=== PATIENT | female | born 1975 | race Caucasian/White ===

== ENCOUNTER 2018-06-02 05:36 | Inpatient (IN) | payer MEDICARE, BC ==
[~2018-06-02 05:36] MED LIST: Acetaminophen 500 MG Tab PO ONE; Celecoxib 200 MG Cap PO ONE; Gabapentin 300 MG Cap PO ONE
[2018-06-02] MEDS ORDERED: Dextrose 5%-Lactated Ringers 1,000 ML IV SCH (06:00)
[2018-06-02] MEDS ORDERED: Scopolamine 1.5 MG Transdermal Patch TRDERM ONE (06:00)
[2018-06-02] MEDS ORDERED: Albuterol/Ipratropium 3.0-0.5 MG/3 ML Neb Soln NEB ONE (06:45)
[2018-06-02] MEDS ORDERED: Levofloxacin 500 MG/20 ML SDV ONE (06:56)
[2018-06-02] MEDS ORDERED: Dexamethasone 4 MG/ML SDV ONE (07:10)
[2018-06-02] MEDS ORDERED: fentaNYL 250 MCG/5 ML SDV ONE ×2 (07:10→07:42)
[2018-06-02] MEDS ORDERED: Rocuronium 50 MG/5 ML Vial ONE (07:10)
[2018-06-02] MEDS ORDERED: Glycopyrrolate 0.2 MG/ML 5 ML MDV ONE (07:10)
[2018-06-02] MEDS ORDERED: Succinylcholine 200 MG/10 ML MDV ONE (07:10)
[2018-06-02] MEDS ORDERED: Neostigmine Methylsulfate 1 MG/ML 5 ML Syringe ONE (07:10)
[2018-06-02] MEDS ORDERED: Ondansetron 4 MG/2 ML SDV ONE (07:10)
[2018-06-02] MEDS ORDERED: Propofol 200 MG/20 ML SDV ONE (07:10)
[2018-06-02] MEDS ORDERED: Levofloxacin/Dextrose 5%-Water 500 MG in Premix Bag 1 BAG IV ONE (07:15)
[2018-06-02] MEDS ORDERED: Sodium Chloride 0.9% Irrigation 1,000 ML Container IRR ONE (08:48)
[2018-06-02] MEDS ORDERED: Ketamine 500 MG/5 ML MDV IV SCH (09:00)
[2018-06-02] MEDS ORDERED: Lidocaine 2% 100 MG/5 ML Syringe IVPUSH ONE (09:00)
[2018-06-02] MEDS ORDERED: Ropivacaine 53 ML, Dexamethasone 8 MG, EPINEPHrine 0.4 MG, Sodium Chloride 0.9% 24.6 ML NERVRT SCH ×4 (09:00)
[2018-06-02] MEDS ORDERED: Lidocaine 0.4%/D5W 2 GM/500 ML BAG IV SCH (09:00)
[2018-06-02] MEDS ORDERED: Ondansetron 4 MG/2 ML SDV IVPUSH ONE (09:13)
[2018-06-02] MEDS ORDERED: hydrOXYzine HCl 100 MG/2 ML SDV IM ONE (09:13)
[2018-06-02] MEDS ORDERED: fentaNYL 100 MCG/2 ML SDV IVPUSH ONE (09:13)
[2018-06-02] MEDS ORDERED: Insulin Aspart 100 Units/ML 3 ML Pen SUBCUT ONE (09:25)
[2018-06-02] MEDS: [UNRECOGNIZED DRUG - OTHER] TOP SCH (11:08)
[2018-06-02] MEDS ORDERED: Albuterol/Ipratropium 3.0-0.5 MG/3 ML Neb Soln INH PRN (11:22)
[2018-06-02] MEDS: hydrOXYzine HCl 100 MG/2 ML SDV IM PRN ×3 (11:53→21:53)
[2018-06-02] MEDS ORDERED: Ondansetron 4 MG/2 ML SDV IVPUSH PRN (12:00)
[2018-06-02] MEDS ORDERED: Glucagon,Human Recombinant 1 MG Vial IM PRN (12:00)
[2018-06-02] MEDS ORDERED: Pantoprazole 40 MG Vial IVPUSH SCH (12:00)
[2018-06-02] MEDS ORDERED: Metoclopramide 10 MG/2 ML SDV IVPUSH PRN (12:00)
[2018-06-02] MEDS ORDERED: Labetalol 20 MG/4 ML Syringe IVPUSH PRN (12:00)
[2018-06-02] MEDS ORDERED: 50% Dextrose in Water 50 ML Syringe IVPUSH PRN (12:00)
[2018-06-02] MEDS ORDERED: diphenhydrAMINE 50 MG/ML SDV IVPUSH PRN (12:00)
[2018-06-02] MEDS: Dextrose 5%-Lactated Ringers 1,000 ML IV SCH ×2 (12:30→23:13)
[2018-06-02] MEDS: Acetaminophen Soln 650 MG/20.3 ML UD Cup PO SCH ×2 (12:34→17:23)
[2018-06-02] MEDS: Gabapentin 250 MG/5 ML Solution ML 470 ML Bottle PO SCH ×2 (14:00→20:20)
[2018-06-02] MEDS: Albuterol/Ipratropium 3.0-0.5 MG/3 ML Neb Soln INH SCH ×2 (14:34→20:20)
[2018-06-02] MEDS: Insulin Aspart 100 Units/ML 3 ML Pen SUBCUT PRN ×2 (17:21→21:46)
[2018-06-02] MEDS: Heparin Sodium 5,000 Units/ML Vial SUBCUT SCH (17:23)
[2018-06-02] MEDS: traMADol 50 MG Tab PO PRN ×2 (17:23→21:44)
[2018-06-02] MEDS: MVI, Adult with Vitamin K 10 ML, Thiamine 200 MG, Chromium/Copper/Mang/Selen/Zn 1 ML in... IV SCH ×4 (17:23)
[2018-06-02] MEDS: Venlafaxine 75 MG Tab PO SCH (20:20)
[2018-06-02] MEDS: Cyclobenzaprine 10 MG Tab PO SCH (20:21)
[2018-06-03] MEDS: Acetaminophen Soln 650 MG/20.3 ML UD Cup PO SCH ×5 (01:12→23:47)
[2018-06-03] MEDS ORDERED: Iohexol 647 MG/ML 50 ML SDV PO STA (02:48)
[2018-06-03] MEDS: traMADol 50 MG Tab PO PRN ×4 (03:44→19:54)
[2018-06-03] MEDS: Heparin Sodium 5,000 Units/ML Vial SUBCUT SCH ×2 (04:59→17:35)
[2018-06-03] MEDS: Dextrose 5%-Lactated Ringers 1,000 ML IV SCH (05:00)
[2018-06-03] MEDS: Insulin Aspart 100 Units/ML 3 ML Pen SUBCUT PRN (05:07)
[2018-06-03] MEDS: Levofloxacin/Dextrose 5%-Water 500 MG in Premix Bag 1 BAG IV SCH (05:08)
[2018-06-03] MEDS: Albuterol/Ipratropium 3.0-0.5 MG/3 ML Neb Soln INH SCH ×4 (07:39→20:00)
[2018-06-03] MEDS: Gabapentin 250 MG/5 ML Solution ML 470 ML Bottle PO SCH (08:10)
[2018-06-03] MEDS: Venlafaxine 75 MG Tab PO SCH ×2 (08:12→20:00)
[2018-06-03] MEDS: Cyclobenzaprine 10 MG Tab PO SCH ×3 (08:12→20:00)
[2018-06-03] MEDS: Metoprolol Succinate 50 MG Tab.ER PO SCH (08:13)
[2018-06-03] MEDS: Celecoxib 200 MG Cap PO SCH (08:13)
[2018-06-03] MEDS: SCOPOLAMINE PATCH CHECK TOP SCH (08:18)
[2018-06-03] MEDS: [UNRECOGNIZED DRUG - OTHER] TOP SCH (08:18)
--- NOTE | 2018-06-03 08:51 | CR ---
UGI wo KUB HISTORY: eval R -Y GBP FINDINGS: After administration of oral contrast, upright views were obtained. Post operative changes gastric bypass. Surgical drains in place. No evidence for leak. Contrast passes freely into proximal small bowel loops. IMPRESSION: No evidence for leak or obstruction.
[2018-06-03] MEDS ORDERED: Metoprolol Succinate 50 MG Tab.ER PO SCH (09:00)
[2018-06-03] MEDS: Spironolactone 25 MG Tab PO SCH ×2 (10:03→20:03)
[2018-06-03] MEDS: metFORMIN 500 MG Tab PO SCH ×2 (10:04→20:01)
[2018-06-03] MEDS: Chlorthalidone 25 MG Tab PO SCH (10:04)
[2018-06-03] MEDS: Lisinopril 10 MG Tab PO SCH (10:08)
[2018-06-03] MEDS: Lactated Ringers 1,000 ML IV SCH ×2 (10:11→23:47)
[2018-06-03] MEDS: Pantoprazole 40 MG Delayed-Release Granules 1 Packet PO SCH (11:13)
[2018-06-03] MEDS: Gabapentin 300 MG Cap PO SCH ×2 (14:14→20:04)
[2018-06-03] MEDS: MVI, Adult with Vitamin K 10 ML, Thiamine 200 MG, Chromium/Copper/Mang/Selen/Zn 1 ML in... IV SCH ×4 (17:29)
[2018-06-03] MEDS: Montelukast 10 MG Tab PO SCH (20:01)
[2018-06-04] MEDS: Heparin Sodium 5,000 Units/ML Vial SUBCUT SCH ×2 (04:18→15:49)
[2018-06-04] MEDS: Acetaminophen Soln 650 MG/20.3 ML UD Cup PO SCH ×3 (05:15→17:05)
[2018-06-04] MEDS: Levofloxacin/Dextrose 5%-Water 500 MG in Premix Bag 1 BAG IV SCH (05:16)
[2018-06-04] MEDS: Albuterol/Ipratropium 3.0-0.5 MG/3 ML Neb Soln INH SCH ×4 (07:55→20:46)
[2018-06-04] MEDS: Gabapentin 300 MG Cap PO SCH ×3 (09:00→20:44)
[2018-06-04] MEDS ORDERED: Cyanocobalamin (Vitamin B12) 1,000 MCG/ML SDV IM ONE (09:00)
[2018-06-04] MEDS: metFORMIN 500 MG Tab PO SCH ×2 (09:01→20:44)
[2018-06-04] MEDS: Metoprolol Succinate 50 MG Tab.ER PO SCH (09:01)
[2018-06-04] MEDS: Venlafaxine 75 MG Tab PO SCH ×2 (09:01→20:45)
[2018-06-04] MEDS: Lisinopril 10 MG Tab PO SCH (09:02)
[2018-06-04] MEDS: Chlorthalidone 25 MG Tab PO SCH (09:02)
[2018-06-04] MEDS: Celecoxib 200 MG Cap PO SCH (09:03)
[2018-06-04] MEDS: Cyclobenzaprine 10 MG Tab PO SCH ×3 (09:03→20:45)
[2018-06-04] MEDS: Spironolactone 25 MG Tab PO SCH ×2 (09:04→20:44)
[2018-06-04] MEDS: [UNRECOGNIZED DRUG - OTHER] TOP SCH (09:05)
[2018-06-04] MEDS: SCOPOLAMINE PATCH CHECK TOP SCH (09:05)
[2018-06-04] MEDS: Lactated Ringers 1,000 ML IV SCH (10:05)
[2018-06-04] MEDS: Bisacodyl 5 MG Tab PO SCH ×2 (10:07→20:47)
[2018-06-04] MEDS: Pantoprazole 40 MG Delayed-Release Granules 1 Packet PO SCH (10:07)
[2018-06-04] MEDS: Insulin Aspart 100 Units/ML 3 ML Pen SUBCUT PRN (10:09)
[2018-06-04] MEDS: Metoclopramide 10 MG/2 ML SDV IVPUSH SCH ×3 (10:11→20:59)
[2018-06-04] MEDS: Magnesium Hydroxide 400 MG/5 ML Susp 30 ML Cup PO SCH ×2 (10:11→20:47)
[2018-06-04] MEDS ORDERED: MVI, Adult with Vitamin K 10 ML, Thiamine 200 MG, Chromium/Copper/Mang/Selen/Zn 1 ML in... IV SCH ×4 (16:00)
[2018-06-04] MEDS: Montelukast 10 MG Tab PO SCH (20:44)
[2018-06-05] MEDS: Acetaminophen Soln 650 MG/20.3 ML UD Cup PO SCH ×2 (00:01→05:25)
[2018-06-05] MEDS: Lactated Ringers 1,000 ML IV SCH (01:56)
[2018-06-05] MEDS: Heparin Sodium 5,000 Units/ML Vial SUBCUT SCH (03:50)
[2018-06-05] MEDS: Metoclopramide 10 MG/2 ML SDV IVPUSH SCH ×2 (03:51→09:40)
[2018-06-05] MEDS: Albuterol/Ipratropium 3.0-0.5 MG/3 ML Neb Soln INH SCH ×2 (07:07→10:39)
[2018-06-05] MEDS: Celecoxib 200 MG Cap PO SCH (07:35)
[2018-06-05] MEDS: Spironolactone 25 MG Tab PO SCH (09:33)
[2018-06-05] MEDS: metFORMIN 500 MG Tab PO SCH (09:34)
[2018-06-05] MEDS: Gabapentin 300 MG Cap PO SCH (09:34)
[2018-06-05] MEDS: Metoprolol Succinate 50 MG Tab.ER PO SCH (09:36)
[2018-06-05] MEDS: Magnesium Hydroxide 400 MG/5 ML Susp 30 ML Cup PO SCH (09:37)
[2018-06-05] MEDS: Bisacodyl 5 MG Tab PO SCH (09:37)
[2018-06-05] MEDS: Lisinopril 10 MG Tab PO SCH (09:37)
[2018-06-05] MEDS: Chlorthalidone 25 MG Tab PO SCH (09:37)
[2018-06-05] MEDS: Cyclobenzaprine 10 MG Tab PO SCH (09:37)
[2018-06-05] MEDS: Venlafaxine 75 MG Tab PO SCH (09:41)
--- NOTE | 2018-06-05 14:20 | PN ---
DATE OF SERVICE: 06/04/2018 The patient is postop day 2 from Michael-en-Y gastric bypass. She is passing flatus, but quite distended. We will work on getting the bowels going today. Otherwise, continue step-2 diet. Blood sugars running in the 180 range and I think we will leave her on the metformin alone today and see if those come down. If tomorrow they are still staying in that range, we will add the long-acting Byetta that she is on. Otherwise, we will continue to work on bowel movement and increase the activity today. Killian Fishman MD /[id number]
--- NOTE | 2018-06-05 14:26 | PN ---
DATE OF SERVICE: 06/03/2018 SUBJECTIVE: The patient is postop day #1 from laparoscopic Michael-en-Y gastric bypass. No major problems were noted overnight. We will go up to step-2 diet. Upper GI x-ray looks good and we will restart her usual medications. Blood sugar is running a little bit high, and restart her metformin today. Killian Fishman MD /[id number]
--- NOTE | 2018-06-07 08:51 | DISCH ---
FINAL DIAGNOSES: 1. Morbid obesity. 2. History of asthma. 3. Hyperlipidemia. 4. Treated hypothyroidism. 5. History of hypertension. 6. History of obstructive sleep apnea. 7. Lumbar spinal stenosis associated with peripheral neuropathy. OPERATIVE PROCEDURE: Laparoscopic Michael-en-Y gastric bypass with a liver biopsy on 06/02/2018. SUMMARY: This is a 42-year-old female presenting with longstanding morbid obesity and increasingly significant comorbidities. After preoperative evaluation and discussion, she wished to proceed with a gastric bypass procedure. This was completed on the day of admission along with a liver biopsy to evaluate a fatty infiltrated appearing liver. Postoperatively, she had some slight constipation, which has now resolved, and she will be discharged home, stay on a step-2 diet until the first appointment, which will be with Cassidy Mendez PA-C at [facility]3] on 06/13/2018. From medication standpoint, the patient wished to go off the Cymbalta, and presently is switched to Effexor 37.5 mg p.o. b.i.d. The patient presently is on metformin 1000 mg b.i.d. and actually is running blood sugars in the mid 100s and hold the Actos and Byetta at this point and she will be instructed to keep a log of her blood sugars and to bring that at the first appointment to determine if we can further alter the diabetic management at that point. Otherwise, she will be continued on usual medications including Celebrex 200 mg a day, which we started preoperatively. She will be holding the K-Tab ER and Coenzyme Q10 x2 weeks then resume those at the usual dosage.
--- NOTE | 2018-06-09 10:56 | OR ---
DATE OF PROCEDURE: 06/02/2018 PREOPERATIVE DIAGNOSIS: Morbid obesity. POSTOPERATIVE DIAGNOSES: 1. Morbid obesity. 2. Marked hepatomegaly. OPERATIVE PROCEDURE: 1. Laparoscopic Michael-en-Y gastric bypass with long-limb gastroenterostomy (06661). 2. Lonnie-Cut needle liver biopsy (12726). ANESTHESIA: General. INDICATION FOR PROCEDURE: This is a 42-year-old, presenting with longstanding morbid obesity and increasingly significant comorbidities. After preoperative evaluation and discussion, she wished to proceed with a gastric bypass procedure. Potential risks including bleeding, infection, leaks from various GI tract closures, problems with bowel obstruction over time as well as possibility of cardiopulmonary, septic, or hemorrhagic complications leading to were all discussed, and the patient wishes to proceed. DETAILS OF PROCEDURE: The patient was taken to the operating room, and after general endotracheal anesthesia was induced, she was converted to a lithotomy position. The abdomen was prepped and draped, and orogastric tube placed per Anesthesia, 15 cm inferior and 5 cm left of xiphoid process. Transverse incision was made and peritoneal cavity entered under direct vision with an Optiview trocar and inflated to 15 mmHg pressure with CO2. Laparoscope was reinserted. No underlying trocar insertion site injuries were seen. Following this, bilateral subcostal transverse abdominis plane blocks were placed using standard solution. Following this, 5 additional trocars were placed across the mid abdomen, general exploration was undertaken. The patient was noted to have marked hepatomegaly with liver being roughly 2 to 3 times normal in size and grossly fatty infiltrated. Lonnie-Cut needle biopsies were obtained from left lobe of the liver and minimal bleeding from the biopsy sites was controlled with electrocautery. The omentum was then divided in the midline up to the level of the transverse colon. This allowed identification of the small bowel to the ligament of Treitz. Small bowel was then traced out 100 cm distal to that point, where it was divided transversely with a EVANGELINA stapler. Small bowel was then traced out an additional 200 cm where the [id number] enteroenterostomy was accomplished with internal firing of Endo-EVANGELINA 60 mm stapler. The common opening was then closed transversely with the same stapler, angles anastomosed, and mesenteric defect approximated with some 0 Ethibond stitch along with fibrin sealant. The divided end of the Michael limb was from the mesentery for a few centimeters, which allowed an antecolic position of the Michael limb up to the level of the gastroesophageal junction without tension. The liver was retracted anteriorly. The patient noted not to have any significant hiatal hernia. The gastrointestinal balloon catheter was then inflated to 15 mL and pulled up snugly against the EG junction. The gastric wall over the apex balloon was then marked with electrocautery and balloon catheter deflated and pulled up in the esophagus. The lesser omental tissue adjacent to the gastric cardia was then incised allowing dissection behind the stomach at that level. The pouch formation was initiated with a transverse firing of the EVANGELINA stapler at the level of the cauterized karli in the gastric cardia and completed with additional firings of the EVANGELINA staplers up to and through the angle of His. Upon completion of the pouch, both staple lines were noted to be intact. The anvil of a 25 mm EEA stapler was attached to a [place] sump type tube was brought down through the mouth and taken out allowing the anvil to be pulled down to within the gastric pouch as well. Divided end of the Michael limb was then opened and the main body of the EEA stapler passed several centimeters into the lumen of small bowel, brought out the anvil and united with it, thus creating the gastrojejunostomy. Upon removal of stapler, double donuts of mucosa were noted within it and the small bowel was closed off with a vascular staple line. The gastrojejunostomy was reinforced with some 3-0 Vicryl seromuscular stitch along with fibrin sealant. A leak test was accomplished with injection of 120 mL of air into the gastric pouch while submerged with cefoxitin-containing saline solution. No leaks were identified. A single Placido-Escalera drain was then placed through the left lateral trocar site and placed adjacent to the gastrojejunostomy and then up into the splenic fossa. The trocars were then sequentially removed. The peritoneal cavity deflated. The incision was closed at the skin level with 4-0 Vicryl stitch and then drain also fixed with a 4-0 Vicryl stitch. The patient was taken to the recovery room in satisfactory condition. There were no evident complications. Killian Fishman MD /[id number] CC: Juanita Bunch APRN, [employer]
== END 2018-06-05 11:00 | disposition home or self-care (01) | DRG 621 ==
LOC: JP.SDS 05:36 → JP.SDSSCHI 05:36 → EDSTATUS 08:15 → JP.2SS 08:45
PROVIDERS: ADMIT Surgery; ATTEND Surgery
PROC: 0D164ZA Bypass Stomach to Jejunum, Percutaneous Endoscopic Approach (ICD-10-PCS; principal; 2018-06-02)
PROC: 0FB24ZX Excision of Left Lobe Liver, Percutaneous Endoscopic Approach, Diagnostic (ICD-10-PCS; 2018-06-02)
PROC: 3E0T3BZ Introduction of Anesthetic Agent into Peripheral Nerves and Plexi, Percutaneous Approach (ICD-10-PCS; 2018-06-02)
DX: E66.01 Morbid (severe) obesity due to excess calories (principal); R16.0 Hepatomegaly, not elsewhere classified; Z68.39 Body mass index [BMI] 39.0-39.9, adult; K76.0 Fatty (change of) liver, not elsewhere classified; J45.909 Unspecified asthma, uncomplicated; E78.5 Hyperlipidemia, unspecified; E03.9 Hypothyroidism, unspecified; I10 Essential (primary) hypertension; G47.33 Obstructive sleep apnea (adult) (pediatric); E11.42 Type 2 diabetes mellitus with diabetic polyneuropathy; L73.2 Hidradenitis suppurativa; G89.29 Other chronic pain; M54.5 Low back pain; F41.9 Anxiety disorder, unspecified; Z90.710 Acquired absence of both cervix and uterus; Z98.1 Arthrodesis status; Z87.891 Personal history of nicotine dependence; Z79.899 Other long term (current) drug therapy; Z88.6 Allergy status to analgesic agent; Z88.1 Allergy status to other antibiotic agents; Z88.0 Allergy status to penicillin; Z88.2 Allergy status to sulfonamides
CPT/HCPCS: 36415; 74240; 74240-26; 82962; 86850; 86900; 86901; 88305; 88307; 88313; 88342; 94640; 94762; A9270-GY; C9113; J0171; J0330; J1100; J1644; J1956; J2405; J2704; J2710; J2765; J2795; J3010; J3410; J3411; J3420; J3490; J7030; J7042; J7050; J7120; J7620-GY; Q9967